=== PATIENT | female | born 1965 | race Caucasian/White ===

== ENCOUNTER 2018-05-25 12:13 | Emergency (ER) | payer OTHER ==
[2018-05-25 13:09] VITALS: TEMP 98.2; BMI 36.7
[2018-05-25] MEDS ORDERED: ONDANSETRON 4 MG/2 ML VIAL ONE (15:16)
[2018-05-25] MEDS ORDERED: FAMOTIDINE 20 MG/50 ML IVPB 20 MG/50 ML MG IVPB ONE (15:16)
[2018-05-25 15:21] LABS: URINE APPEARANCE SLCLOUDY; URINE BILIRUBIN NEGATIVE (<2.0 mg/dL); URINE COLOR DKYELLOW; URINE GLUCOSE (UA) NEGATIVE (NEGATIVE); URINE KETONE NEGATIVE (NEGATIVE); URINE LEUK ESTERASE 3+ (NEGATIVE); URINE NITRITE NEGATIVE (NEGATIVE); URINE PROTEIN 1+ (NEGATIVE); URINE UROBILINOGEN 4.0 E.U/dl mg/dL (0.2-1.0)
[2018-05-25] MEDS ORDERED: SODIUM CHLORIDE 1,000 ML IV STA (15:21)
[2018-05-25] MEDS ORDERED: ONDANSETRON 4 MG/2 ML VIAL IVPUSH ONE (15:21)
[2018-05-25] MEDS ORDERED: FAMOTIDINE 20 MG/50 ML IVPB 20 MG in PREMIX 50 IVPB ONE (15:22)
[2018-05-25 15:32] LABS: EPI CELLS MODERATE /HPF (FEW); URINE MUCUS MODERATE
[2018-05-25] MEDS ORDERED: ACETAMINOPHEN 325 MG TABLET (FP) ONE (15:55)
[2018-05-25 15:57] LABS: BASO % 0.7 % (0-2.0); EOS % 0.9 % (0-4.5); HEMATOCRIT 40.8 % (32.4-45.2); HEMOGLOBIN 13.7 GM/dL (10.7-15.3); LYMPH % 16.2 % (8-40); MCH 29.8 pg (25.7-33.7); MCHC 33.7 g/dl (32.0-36.0); MEAN CELL VOLUME 88.4 fl (80-96); MEAN PLT VOLUME 10.2 fl (7.5-11.1); MONO % 9.2 % (3.8-10.2); PLATELET COUNT 214 K/MM3 (134-434); RBC 4.62 M/mm3 (3.60-5.2); RDW 13.9 % (11.6-15.6); WHITE BLOOD COUNT 9.1 K/mm3 (4.0-10.0)
[2018-05-25] MEDS ORDERED: ACETAMINOPHEN 325 MG TABLET (FP) PO ONE (16:01)
[2018-05-25 16:25] LABS: ALBUMIN 3.6 g/dl (3.4-5.0); ALK PHOS 85 U/L (45-117); ANION GAP 6 MMOL/L (8-16); BILIRUBIN,TOTAL 0.6 mg/dL (0.2-1); BLOOD UREA NITROGEN 19 mg/dL (7-18); CALCIUM 8.4 mg/dL (8.5-10.1); CHLORIDE 106 mmol/L (98-107); CO2 24 mmol/L (21-32); CREATININE 0.7 mg/dL (0.55-1.3); GLUCOSE,RANDOM 89 mg/dL (74-106); LIPASE 110 U/L (73-393); POTASSIUM 3.7 mmol/L (3.5-5.1); SGOT/AST 15 U/L (15-37); SGPT/ALT 22 U/L (13-61); SODIUM 136 mmol/L (136-145)
--- NOTE | 2018-05-25 16:59 | PDOC ---
History of Present Illness - General Chief Complaint: Nausea/Vomiting Stated Complaint: SICK Time Seen by Provider: 05/25/18 15:05 History Source: Patient Exam Limitations: No Limitations - History of Present Illness Travel History: No Initial Comments: 05/25/18 16:53 53 y/o female with c/o frontal throbbing pressure to forehead since yesterday without fever, neck pain , or visual changes. Pt states today vomited x 1 and now has suprapubic pressure without urinary or bowel complaints. Pt states hx of HTN and denies elevated BP. Pt denies recent travel or illness. Pt has no other complaints. Timing/Duration: reports: changing over time Quality: reports: mild, fullness Abdominal Pain Onset Location: reports: suprapubic Pain Radiation: reports: no radiation Activities at Onset: reports: none Aggravating Factors: improves with: None Alleviating Factors: improves with: None Past History - Past Medical History Allergies/Adverse Reactions: Allergies Allergy/AdvReac Type Severity Reaction Status Date / Time No Known Allergies Allergy Verified 05/25/18 13:04 Home Medications: Ambulatory Orders Multivitamin [One-Daily Multi-Vitamin] 1 each PO DAILY 05/25/18 Moro-3/Dha/Epa/Fish Oil [Moro 3 500 Softgel] 1 each PO DAILY 05/25/18 COPD: No HTN: Yes Hypercholesterolemia: Yes - Suicide/Smoking/Psychosocial Hx Smoking History: Never smoked Hx Alcohol Use: No Drug/Substance Use Hx: No Review of Systems - Review of Systems Able to Perform ROS?: No Is the patient limited [place] proficient: No Constitutional: No: Symptoms Reported HEENTM: No: Symptoms Reported Respiratory: No: Symptoms reported Cardiac (ROS): No: Symptoms Reported ABD/GI: Yes: Vomiting, Abdominal cramping : No: Symptoms Reported Musculoskeletal: No: Symptoms Reported Integumentary: No: Symptoms Reported Neurological: Yes: Headache Hematologic/Lymphatic: No: Symptoms Reported *Physical Exam - Vital Signs Last Vital Signs Temp Pulse Resp BP Pulse Ox 98.2 F 77 16 126/84 99 05/25/18 13:04 05/25/18 13:04 05/25/18 13:04 05/25/18 13:04 05/25/18 13:04 - Physical Exam General Appearance: Yes: Nourished, Appropriately Dressed. No: Apparent Distress HEENT: positive: EOMI, PRINCESS, TMs Normal, Pharynx Normal. negative: Pale Conjunctivae Neck: positive: Normal Thyroid, Supple Respiratory/Chest: positive: Lungs Clear, Normal Breath Sounds. negative: Respiratory Distress, Accessory Muscle Use Cardiovascular: positive: Regular Rhythm, Regular Rate. negative: Murmur Gastrointestinal/Abdominal: positive: Soft, Tenderness (mild mid suprapubic) Extremity: positive: Normal Capillary Refill. negative: Pedal Edema Integumentary: positive: Normal Color, Warm, Moist Neurologic: positive: Motor Strength 5/5 (ambulatory) Moderate Sedation - Procedure Monitoring Vital Signs: Procedure Monitoring Vital Signs Temperature 98.2 F 05/25/18 13:04 Pulse Rate 77 05/25/18 13:04 Respiratory Rate 16 05/25/18 13:04 Blood Pressure 126/84 05/25/18 13:04 O2 Sat by Pulse Oximetry (%) 99 05/25/18 13:04 ED Treatment Course - LABORATORY CBC & Chemistry Diagram: 05/25/18 15:30 05/25/18 15:30 - ADDITIONAL ORDERS Additional order review: Laboratory Results 05/25/18 05/25/18 05/25/18 15:33 15:30 14:50 Sodium 136 Potassium 3.7 Chloride 106 Carbon Dioxide 24 Anion Gap 6 L BUN 19 H Creatinine 0.7 Creat Clearance w eGFR 87.20 Random Glucose 89 Calcium 8.4 L Total Bilirubin 0.6 AST 15 ALT 22 Alkaline Phosphatase 85 Total Protein 7.0 Albumin 3.6 Lipase 110 Serum , Qual Negative Urine Color Dkyellow Urine Appearance Slcloudy Urine pH 6.0 Ur Specific [place] 1.029 Urine Protein 1+ H Urine Glucose (UA) Negative Urine Ketones Negative Urine Blood Negative Urine Nitrite Negative Urine Bilirubin Negative Urine Urobilinogen 4.0 e.u/dl H Ur Leukocyte Esterase 3+ H Urine WBC (Auto) 9 Urine RBC (Auto) 5 Ur Epithelial Cells Moderate Urine Mucus Moderate 05/25/18 15:30 RBC 4.62 MCV 88.4 MCHC 33.7 RDW 13.9 MPV 10.2 Neutrophils % 73.0 Lymphocytes % 16.2 Monocytes % 9.2 Eosinophils % 0.9 Basophils % 0.7 - RADIOLOGY Radiology Studies Ordered: Category Date Time Status HEAD CT WITHOUT CONTRAST [CT] Stat CT Scan 05/25/18 16:01 Taken - Medications Given in the ED: ED Medications Discontinued Medications Generic Name Dose Route Start Last Admin Trade Name Eli PRN Reason Stop Dose Admin Acetaminophen 650 mg 05/25/18 16:01 05/25/18 16:06 Tylenol - PO 05/25/18 16:02 650 mg ONCE ONE Administration Sodium Chloride 1,000 mls @ 1,000 mls/hr 05/25/18 15:21 05/25/18 15:30 Normal Saline - IV 05/25/18 16:20 1,000 mls/hr ASDIR STA Administration Famotidine/Sodium Chloride 20 50 mls @ 100 mls/hr 05/25/18 15:22 05/25/18 15: 30 mg/ Miscellaneous IVPB 05/25/18 15:51 100 mls/hr ONCE ONE Administration Ondansetron HCl 4 mg 05/25/18 15:21 05/25/18 15:30 Zofran Injection IVPUSH 05/25/18 15:22 4 mg ONCE ONE Administration Medical Decision Making - Medical Decision Making 05/25/18 15:57 CC: reyes, lower abd pressure and 1 episode of vomiting Exam: vss, noted suprapubic tenderness Plan: labs, ua, ucx, iv, ivf, head ct, tylenol, zofran and pepcid 05/25/18 16:59 Laboratory Tests 05/25/18 05/25/18 05/25/18 14:50 15:30 15:30 WBC 9.1 Hgb 13.7 Hct 40.8 Absolute Neuts (auto) 6.6 Sodium 136 Potassium 3.7 Chloride 106 Carbon Dioxide 24 Anion Gap 6 L BUN 19 H Creatinine 0.7 Creat Clearance w eGFR 87.20 Random Glucose 89 Calcium 8.4 L Total Bilirubin 0.6 AST 15 ALT 22 Alkaline Phosphatase 85 Total Protein 7.0 Albumin 3.6 Lipase 110 Serum , Qual Urine Protein 1+ H Urine Urobilinogen 4.0 e.u/dl H Ur Leukocyte Esterase 3+ H Urine WBC (Auto) 9 Urine RBC (Auto) 5 05/25/18 15:33 WBC Hgb Hct Absolute Neuts (auto) Sodium Potassium Chloride Carbon Dioxide Anion Gap BUN Creatinine Creat Clearance w eGFR Random Glucose Calcium Total Bilirubin AST ALT Alkaline Phosphatase Total Protein Albumin Lipase Serum , Qual Negative Urine Protein Urine Urobilinogen Ur Leukocyte Esterase Urine WBC (Auto) Urine RBC (Auto) Uc x sent. Pt states feeling better. Head ct results pending 05/25/18 17:[address] with no intracranial lesion or bleed. Noted mild dilatation of the lat and 3rd ventricles prob representing involntary change. Recommend non emergent MRI. Discharge home with macrobid 05/25/18 17:18 *DC/Admit/Observation/Transfer Diagnosis at time of Disposition: UTI (urinary tract infection) - Discharge Dispostion Disposition: HOME Condition at time of disposition: Improved - Referrals Referrals: Lynette Keller MD [Primary Care Provider] - - Patient Instructions Printed Discharge Instructions: DI for Urinary Tract Infection (UTI) Additional Instructions: PLease take antibiotic as prescribed. Take tylenol for discomfort. Bring copy of CT with you to your PMD - Post Discharge Activity
[2018-05-25 17:30] VITALS: BP 141/78; PULSE 78
== END 2018-05-25 17:48 | disposition home or self-care (01) ==
LOC: JER 12:13
PROC: 3E033GC Introduction of Other Therapeutic Substance into Peripheral Vein, Percutaneous Approach (ICD-10-PCS; principal; 2018-05-25)
PROC: 3E0337Z Introduction of Electrolytic and Water Balance Substance into Peripheral Vein, Percutaneous Approach (ICD-10-PCS; 2018-05-25)
DX: N39.0 Urinary tract infection, site not specified (principal); I10 Essential (primary) hypertension; E78.00 Pure hypercholesterolemia, unspecified
CPT/HCPCS: 36415; 70450-TC; 80053; 81003; 81015; 83690; 84703; 85025; 87086; 96361; 96365; 96375; 99284-25; J7030